=== PATIENT | female | born 1990 | race Caucasian/White ===

== ENCOUNTER 2019-07-31 10:18 | Emergency (ER) | payer OTHER ==
[2019-07-31 10:28] VITALS: TEMP 98.5; BMI 28.5
--- NOTE | 2019-07-31 10:41 | PDOC ---
History of Present Illness - General Chief Complaint: Laceration Stated Complaint: LT. KNEE LAC. Time Seen by Provider: 07/31/19 10:40 - History of Present Illness Initial Comments: 07/31/19 10:40 Ms. Rodriguez is a 29 yo female w/ no significant pmh who presents for evaluation after fall onto L knee while running today. Patient cannot recall last tetanus shot. Complaining only of L knee pain. Denies hitting her head or LOC. Patient evaluated at urgent care and transferred to ER as there was concern for open joint. The patient denies chest pain, shortness of breath, headache and dizziness. Denies fever, chills, nausea, vomit, diarrhea and constipation. Denies dysuria, frequency, urgency and hematuria. Past History - Past Medical History Allergies/Adverse Reactions: Allergies Allergy/AdvReac Type Severity Reaction Status Date / Time No Known Allergies Allergy Verified 07/31/19 10:28 Home Medications: Ambulatory Orders Amoxicillin/Potassium Clav [Augmentin 875-125 Tablet] 1 each PO BID #14 tablet 07/31/19 COPD: No - Immunization History Immunization Up to Date: No - Psycho Social/Smoking Cessation Hx Smoking History: Never smoked Have you smoked in the past 12 months: No Hx Alcohol Use: No Substance Use Type: None Review of Systems - Review of Systems Comments:: 07/31/19 10:41 GENERAL/CONSTITUTIONAL: No fever or chills. No weakness. HEAD, EYES, EARS, NOSE AND THROAT: No change in vision. No ear pain or discharge. No sore throat. CARDIOVASCULAR: No chest pain or shortness of breath RESPIRATORY: No cough, wheezing, or hemoptysis. GASTROINTESTINAL: No nausea, vomiting, diarrhea or constipation. GENITOURINARY: No dysuria, frequency, or change in urination. MUSCULOSKELETAL: +L knee pain s/p trauma. NEUROLOGIC: No headache, vertigo, loss of consciousness, or change in strength/ sensation. ENDOCRINE: No increased thirst. No abnormal weight change HEMATOLOGIC/LYMPHATIC: No anemia, easy bleeding, or history of blood clots. ALLERGIC/IMMUNOLOGIC: No hives or skin allergy. *Physical Exam - Vital Signs Last Vital Signs Temp Pulse Resp BP Pulse Ox 98.5 F 94 H 18 127/76 97 07/31/19 10:20 07/31/19 10:20 07/31/19 10:20 07/31/19 10:20 07/31/19 10:20 - Physical Exam Comments: 07/31/19 10:41 GENERAL: Awake, alert, and fully oriented, in no acute distress HEAD: No signs of trauma, normocephalic, atraumatic EYES: PERRLA, EOMI, sclera anicteric, conjunctiva clear ENT: Auricles normal inspection, hearing grossly normal, nares patent, oropharynx clear without exudates. Moist mucosa NECK: Normal ROM, supple, no lymphadenopathy, JVD, or masses LUNGS: No distress, speaks full sentences, clear to auscultation bilaterally HEART: Regular rate and rhythm, normal S1 and S2, no murmurs, rubs or gallops, peripheral pulses normal and equal bilaterally. ABDOMEN: Soft, nontender, normoactive bowel sounds. No guarding, no rebound. No masses EXTREMITIES: +L knee exam concerning for transverse laceration across knee concerning for open joint. NEUROLOGICAL: Cranial nerves II through XII grossly intact. Normal speech, normal gait, no focal sensorimotor deficits SKIN: Warm, Dry, normal turgor, no rashes or lesions noted. Procedures - Laceration/Wound Repair Left Knee Wound Length: 5.0 to 7.5 cm Wound Explored: clean Wound's Depth, Shape: irregular Irrigated w/ Saline: Yes Betadine Prep: No (Chlorprep) Anesthesia: 1% Lidocaine Amount of Anesthetic (ccs): 10 Wound Debrided: minimal Wound Repaired With: Sutures Suture Size/Type: 3:0 Number of Sutures: 10 Layer Closure: Yes Deep Layer Suture Size/Type: 3:0 Number of Deep Layer Sutures: 2 (2 horizontal mattress ) Sterile Dressing Applied: Yes Splint Applied: Yes Type of Splint Applied: Knee immobilizer Sling Applied: No - Arthrocentesis Indication: Other (Methylene blue injection) Arthrocentesis Site: left: knee Flexion: 20-30 degree Betadine Prep: No (Chlorprep) Sterile Dressing Applied: Yes Dry Tap: No Fluid Color: Straw colored Fluid Amount mL: 2 Anesthesia: 1% Lidocaine Needle Size (guage): 18g Complications: No ED Treatment Course - LABORATORY CBC & Chemistry Diagram: 07/31/19 11:30 07/31/19 11:30 Medical Decision Making - Medical Decision Making 07/31/19 11:09 Ms. Rodriguez is a 29 yo female w/ no significant pmh who presents for evaluation of fall w/ laceration. Patient will require methylene blue examination of joint. Patient given ancef prophylactically and pre-op labs drawn. Boostrix ordered w/ pain meds. 07/31/19 14:32 Patient joint aspirated under sterile conditions and injected with methylene blue / NS mixture. No extrusion noted from injury - do not believe joint capsule infiltrated by injury. Wound irrigated and closed as above. Patient will f/u in 7-10 days for suture removal. Ortho consult provided. Patient placed in L knee immobilizer and discharging to home w/ augmentin PO. Discharge - Discharge Information Problems reviewed: Yes Clinical Impression/Diagnosis: Laceration Disposition: HOME - Additional Discharge Information Prescriptions: Amoxicillin/Potassium Clav [Augmentin 875-125 Tablet] 1 each PO BID #14 tablet - Follow up/Referral Referrals: Makenzie Cornell [Primary Care Provider] - Tomer Matos MD [Staff Physician] - - Patient Discharge Instructions Patient Printed Discharge Instructions: DI for Laceration Repair -- Complex Suture, How to Care for Absorbable Sutures Additional Instructions: You were evaluated today in the ER following your fall. We performed a test to ensure your knee joint was intact and closed your laceration with 2 deep absorbable sutures and 10 superficial simple sutures. Please return in 7-10 days for suture removal. We also sent a proscription to your pharmacy. Take all medications as proscribed. We also provided you orthopedics information that you may use for follow-up. Return to ER if any fever, chills, pain, warmth or pus at site, or other concerning symptoms. - Post Discharge Activity Work/Back to School Note: Back to Work
[2019-07-31] MEDS ORDERED: CEFAZOLIN 1 GM/D5W 1 GM/50 ML BAG IVPB ONE (11:02)
[2019-07-31] MEDS ORDERED: ACETAMINOPHEN 1000 MG/100 ML VIAL (NON FORMULARY) IVPB ONE (11:03)
[2019-07-31] MEDS ORDERED: DIPHTH,PERTUSS(ACELL),TET 0.5 ML DISP.SYRIN IM ONE ×2 (11:03→12:16)
[2019-07-31] MEDS ORDERED: SODIUM CHLORIDE 1,000 ML IV STA (11:30)
[2019-07-31] MEDS ORDERED: ACETAMINOPHEN INJECTION 100 ML IVPB ONE (11:34)
[2019-07-31] MEDS ORDERED: CEFAZOLIN 1 GM/D5W 1 GM/50 ML BAG ONE (11:34)
--- NOTE | 2019-07-31 11:41 | PDOC ---
Attending Attestation - Resident Resident Name: Franky Judd - ED Attending Attestation I have performed the following: I have examined & evaluated the patient, The case was reviewed & discussed with the resident, I agree w/resident's findings & plan, Exceptions are as noted - HPI HPI: 07/31/19 11:38 Mild nurses or shortness of 29-year-old female no past medical history here today complaining of a fall. Patient states she is training for [employer] which was coming up in the next week separately tripped and landed on her left knee sustained a large laceration. Patient was seen at [facility] urgent care due to the depth of the laceration and concerns for complexity involving the joint she was sent to the ED. Patient denies any fevers chills no numbness no tingling does have pain at the left knee was ambulating with difficulty. Unsure of her last tetanus date no other medical problems no meds no allergies happened just prior to arrival - Physicial Exam PE: 07/31/19 11:39 Awake alert no acute distress lungs are clear bilaterally heart is regular without murmurs rubs or gallops abdomen is soft nontender extremities are warm well perfused the left knee demonstrates a large suprapatellar laceration approximately 3 inches wide and is irregular in shape examination reveals concern for possible penetration wound plan full range of motion at the left knee - Medical Decision Making 07/31/19 11:40 29-year-old female status post laceration to her left knee complex laceration very deep plan x-ray rule out underlying fracture will treat with IV Ancef prophylactically. Due to the concern for possible joint capsule penetration and will do a joint injection for to evaluate the integrity of the joint capsule
[2019-07-31] MEDS ORDERED: METHYLENE BLUE 1% 10 MG/1 ML VIAL IVPUSH ONE (12:34)
[2019-07-31] MEDS ORDERED: LIDOCAINE HCL 1%, 10 MG/ML (50 mL VIAL) INF ONE (12:36)
[2019-07-31] MEDS ORDERED: morphine CARPU-JECT 2 MG/1 ML DISP.SYRIN IVPUSH ONE (12:43)
[2019-07-31] MEDS ORDERED: ONDANSETRON 4 MG/2 ML VIAL IVPUSH ONE (12:43)
[2019-07-31] MEDS ORDERED: MORPHINE SULFATE 2 MG/ML VIAL ONE (12:55)
[2019-07-31] MEDS ORDERED: ONDANSETRON 4 MG/2 ML VIAL ONE (12:55)
[2019-07-31] MEDS ORDERED: LIDOCAINE HCL 1%, 10 MG/ML (20ML VIAL) ONE ×2 (12:56→13:28)
[2019-07-31] MEDS ORDERED: BACITRACIN 15 GM TUBE TOPICAL OINTMENT ONE (14:25)
[2019-07-31 15:06] VITALS: BP 132/87; PULSE 72
== END 2019-07-31 15:07 | disposition home or self-care (01) ==
LOC: JER 10:18
PROC: 0JQP3ZZ Repair Left Lower Leg Subcutaneous Tissue and Fascia, Percutaneous Approach (ICD-10-PCS; principal; 2019-07-31)
PROC: 0S9D3ZZ Drainage of Left Knee Joint, Percutaneous Approach (ICD-10-PCS; 2019-07-31)
PROC: 2W3RXYZ Immobilization of Left Lower Leg using Other Device (ICD-10-PCS; 2019-07-31)
PROC: 3E0234Z Introduction of Serum, Toxoid and Vaccine into Muscle, Percutaneous Approach (ICD-10-PCS; 2019-07-31)
PROC: 3E03329 Introduction of Other Anti-infective into Peripheral Vein, Percutaneous Approach (ICD-10-PCS; 2019-07-31)
PROC: 3E033GC Introduction of Other Therapeutic Substance into Peripheral Vein, Percutaneous Approach (ICD-10-PCS; 2019-07-31)
PROC: 3E033NZ Introduction of Analgesics, Hypnotics, Sedatives into Peripheral Vein, Percutaneous Approach (ICD-10-PCS; 2019-07-31)
PROC: 3E033GC Introduction of Other Therapeutic Substance into Peripheral Vein, Percutaneous Approach (ICD-10-PCS; 2019-07-31)
PROC: 3E0337Z Introduction of Electrolytic and Water Balance Substance into Peripheral Vein, Percutaneous Approach (ICD-10-PCS; 2019-07-31)
PROC: 3E023BZ Introduction of Anesthetic Agent into Muscle, Percutaneous Approach (ICD-10-PCS; 2019-07-31)
DX: S89.82XA Other specified injuries of left lower leg, initial encounter (principal); S81.012A Laceration without foreign body, left knee, initial encounter; W18.30XA Fall on same level, unspecified, initial encounter; Y92.414 Local residential or business street as the place of occurrence of the external cause; Y93.02 Activity, running; Y99.8 Other external cause status
CPT/HCPCS: 36415; 73560-TC-LT-FY; 84703; 90715; 99284-25; J0131; J7030

== ENCOUNTER 2019-08-10 09:51 | Emergency (ER) | payer OTHER ==
[2019-08-10 09:58] VITALS: BP 133/80; PULSE 73; TEMP 98.8; BMI 28.5
--- NOTE | 2019-08-10 12:22 | PDOC ---
Suture Removal/Wound Check HPI - History of Present Illness Chief Complaint: Suture/Staple Removal(Here) Stated Complaint: LT KNEE STITCHES REMOVAL Time Seen by Provider: 08/10/19 11:11 History Source: Yes: Patient Exam Limitations: Yes: No Limitations Past History - Past Medical History Allergies/Adverse Reactions: Allergies Allergy/AdvReac Type Severity Reaction Status Date / Time No Known Allergies Allergy Verified 08/10/19 09:58 Home Medications: Ambulatory Orders Amoxicillin/Potassium Clav [Augmentin 875-125 Tablet] 1 each PO BID #14 tablet 07/31/19 COPD: No - Immunization History Immunization Up to Date: No - Psycho Social/Smoking Cessation Hx Smoking History: Never smoked Have you smoked in the past 12 months: No Information on smoking cessation initiated: No Hx Alcohol Use: No Drug/Substance Use Hx: No Substance Use Type: None Suture Removal/Wound Check PE - Physical Exam Laceration/Wound Check Symptoms: reports: Improved. denies: None, Pain, Fever, Redness, Discharge, Bleeding Location of Laceration/Wound: left: Knee (stitches in place, no erythema, no drainage, no swelling) *Physical Exam - Vital Signs Last Vital Signs Temp Pulse Resp BP Pulse Ox 98.8 F 73 18 133/80 99 08/10/19 09:56 08/10/19 09:56 08/10/19 09:56 08/10/19 09:56 08/10/19 09:56 Medical Decision Making - Medical Decision Making 29 y/o F presents for suture removal s/p L knee lac repair 10 days ago. Patient was discharged on antibiotics which she finished. States site is healing well. Denies fever, redness, discharge. Lac healed 10 stitches removed 08/10/19 12:20 Discharge - Discharge Information Problems reviewed: Yes Clinical Impression/Diagnosis: Visit for suture removal Condition: Stable Disposition: HOME - Admission No - Additional Discharge Information Prescription Drug Monitoring Program (I-STOP) results: I-STOP not reviewed - Follow up/Referral Referrals: Makenzie Cornell [Primary Care Provider] - 2 Days - Patient Discharge Instructions Patient Printed Discharge Instructions: DI for Suture Removal - Post Discharge Activity
== END 2019-08-10 12:44 | disposition home or self-care (01) ==
LOC: JERFT 09:51
DX: Z48.02 Encounter for removal of sutures (principal)
CPT/HCPCS: 99281-25